=== PATIENT | female | born 1940 | race Caucasian/White ===

== ENCOUNTER 2016-09-02 11:50 | Inpatient (IN) | payer OTHER, MEDICARE ==
--- NOTE | 2016-09-02 12:34 | PDOC ---
History of Present Illness - General Chief Complaint: Vomiting/Diarrhea Stated Complaint: NAUSEA VOMITING Time Seen by Provider: 09/02/16 12:24 History Source: Patient Exam Limitations: No Limitations - History of Present Illness Initial Comments: CHIEF COMPLAINT: 76 y/o afebrile female with PMH GERD, COPD, HTN c/o vomiting and diarrhea since yesterday. HISTORY OF PRESENT ILLNESS: The patient states she is still nauseous today and able to swallow liquids but feels very weak. She does admit to some lower abdominal cramping. She also admits to 1 episode of tarry diarrhea yesterday. She denies f/c, EDDY, cough, CP, SOB, back pain, hematuria, dysuria. The patient' s daughter informs me that she abuses xanax. Vital signs on arrival are notable for pulse of 91 and O2 sat 92% on RA. REVIEW OF SYSTEMS: GENERAL/CONSTITUTIONAL: No fever/chills. No weakness. No weight change. HEAD, EYES, EARS, NOSE AND THROAT: No change in vision. No ear pain or discharge. No sore throat. CARDIOVASCULAR: No chest pain or shortness of breath. RESPIRATORY: No cough, wheezing, or hemoptysis. GASTROINTESTINAL: +nausea, vomiting, diarrhea and lower abdominal cramping. GENITOURINARY: No dysuria, frequency, or change in urination. MUSCULOSKELETAL: No joint or muscle swelling or pain. No neck or back pain. SKIN: No rash or easy bruising. NEUROLOGIC: No headache, vertigo, loss of consciousness, or loss of sensation. PHYSICAL EXAM: GENERAL: The patient is awake, alert, and fully oriented, in no acute distress. She appears sleepy. HEAD: Normal with no signs of trauma. ENT: Pupils equal, round and reactive to light, extraocular movements intact, sclera anicteric, conjunctiva clear. Neck supple. MOderately dry mucous membranes. LUNGS: Clear to auscultation bilaterally. Normal excursion. No respiratory distress or use of accessory muscles. CV: RRR, S1/S2, no MRG. Cap refill < 2 sec. ABDOMEN: Soft, non-distended, TTP of LLQ. No rebound, guarding or rigidity. Decreased BS x 4. EXTREMITIES: Normal range of motion, no edema. RECTAL: Internal and external hemorrhoids. Stool appears normal in color. NEUROLOGICAL: Normal speech, normal gait. CN II-XII grossly intact. PSYCH: Normal mood, normal affect. SKIN: Decreased skin turgor. Warm, dry, no rashes or lesions noted. Past History - Past Medical History Allergies/Adverse Reactions: Allergies Allergy/AdvReac Type Severity Reaction Status Date / Time No Known Allergies Allergy Verified 09/02/16 12:38 Home Medications: Ambulatory Orders Pantoprazole Sodium [Protonix -] 40 mg PO DAILY 08/02/12 Calcium 500 mg PO DAILY 04/06/15 Cholecalciferol (Vitamin D3) [Vitamin D3] 1,000 unit PO DAILY 04/06/15 [place]-3 Fatty Acids [Fish Oil] 300 mg PO DAILY 04/06/15 Alprazolam [Xanax] 2 tab PO PRN PRN #30 tablet 05/22/15 Ipratropium/Albuterol Sulfate [Combivent Respimat Inhal [place]] 4 gm IH Q6H PRN # 1 aer.w.adap 05/22/15 Montelukast Na [Singulair -] 10 mg PO HS #30 tablet 05/22/15 Duloxetine HCl [Cymbalta] 20 mg PO DAILY 11/12/15 Levothyroxine [Synthroid -] 100 mcg PO DAILY 11/12/15 Oxycodone HCl/Acetaminophen [Percocet 5-325 mg Tablet] 1 tab PO Q4H PRN Metoprolol Succinate [Toprol XL -] 50 mg PO BID #60 tab.sr.24h 11/17/15 Olmesartan/Hydrochlorothiazide [Benicar Hct 20-12.5 mg Tablet] 1 each PO DAILY # 30 tablet 11/17/15 Salmeterol/Fluticasone [Advair 100Mcg/50Mcg -] 1 puff IH BID #1 inhaler Alprazolam 1 mg PO QID 09/02/16 Cholestyramine/Aspartame [Prevalite Packet] 4 gm PO DAILY 09/02/16 Diphenoxylate HCl/Atropine [Lomotil Tablet] 1 each PO DAILY 09/02/16 Duloxetine HCl [Cymbalta] 30 mg PO DAILY 09/02/16 Ondansetron [Zofran -] 4 mg PO BID 09/02/16 Oxycodone HCl/Acetaminophen [Percocet 5-325 mg Tablet] 1 - 2 tab PO Q4H Prednisone [Deltasone -] 10 mg PO BID 09/02/16 Ranitidine [Zantac -] 150 mg PO DAILY 09/02/16 Spironolactone 25 mg PO DAILY 09/02/16 Trazodone HCl 50 mg PO DAILY 09/02/16 Zolpidem Tartrate [Ambien] 10 mg PO HS 09/02/16 Anemia: No Asthma: Yes Cancer: Yes (CERVIX/UTERUS) Cardiac Disorders: Yes (broken heart syndrome) CVA: No COPD: Yes CHF: No Dementia: No Diabetes: No 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) HTN: Yes Hypercholesterolemia: No Liver Disease: No Seizures: No Thyroid Disease: Yes (hypothyroidism) - Surgical History Abdominal Surgery: No Appendectomy: Yes Cardiac Surgery: No Cholecystectomy: No Lung Surgery: No Neurologic Surgery: No Orthopedic Surgery: Yes (FUSION C7-T1, ROTATOR CUFF REPAIR) - Immunization History Immunization Up to Date: Yes - Psycho/Social/Smoking Cessation Hx Anxiety: No Suicidal Ideation: No Smoking History: Former smoker Have you smoked in the past 12 months: No Number of Cigarettes Smoked Daily: 15 If you are a former smoker, when did you quit?: 2000 Hx Alcohol Use: No Drug/Substance Use Hx: No Substance Use Type: None Hx Substance Use Treatment: No Heart Score/ECG Review - ECG Intrepretation Comment:: Twelve-lead EKG was performed and reviewed by Dr. López. There is normal sinus rhythm with a normal rate. The axis is normal. The intervals are normal. There are no ST or T wave abnormalities. Impression: Normal twelve-lead EKG ED Treatment Course - LABORATORY CBC & Chemistry Diagram: 09/02/16 12:49 09/02/16 14:26 Medical Decision Making - Medical Decision Making A/P: 76 y/o afebrile female with vomiting and diarrhea since yesterday. Plan is as followin. EKG 2. CXR 3. Labs 4. IV fluids 5. IV zofran 6. Stool occult EKG normal CXR - unremarkable Labs show hyperkalemia and ARF. Suspect secondary to dehydration. Stool occult + Spoke with Dr. Brown and he wants patient admitted to hospitalist today. Spoke with Dr. Gamez who accepts admission to med/surg. *DC/Admit/Observation/Transfer Diagnosis at time of Disposition: Hyperkalemia Acute renal failure Qualifiers: Acute renal failure type: unspecified Qualified Code(s): N17.9 - Acute kidney failure, unspecified - Discharge Dispostion Admit: Yes - Referrals Referrals: Girish Brown MD [Primary Care Provider] -
[2016-09-02 12:38] VITALS: BMI 21.9
[2016-09-02] MEDS ORDERED: ONDANSETRON 4 MG/2 ML VIAL IVPUSH ONE (12:43)
[2016-09-02 12:51] LABS: STOOL FOR OCCULT BLOOD POSITIVE (NEGATIVE)
[2016-09-02 12:55] LABS: BASOPHIL 1.3 % (0-2.0); EOSINOPHIL 4.6 % (0-4.5); MCH 31.5 pg (25.7-33.7); MCHC 32.7 g/dl (32.0-36.0); MEAN CELL VOLUME 96.2 fl (80-96); MEAN PLT VOLUME 7.9 fl (7.5-11.1); NEUTROPHILS 70.3 % (42.8-82.8); PLATELET COUNT 244 K/MM3 (134-434); RDW 15.4 % (11.6-15.6); WHITE BLOOD COUNT 9.1 K/mm3 (4.0-10.0)
[2016-09-02] MEDS ORDERED: SODIUM CHLORIDE 1,000 ML IV STA ×2 (13:06→14:32)
[2016-09-02] MEDS ORDERED: ONDANSETRON 4 MG/2 ML VIAL ONE (13:07)
[2016-09-02 13:08] LABS: INR 0.99 (0.82-1.09); PROTHROMBIN TIME (PATIENT) 10.9 SEC (9.98-11.88)
[2016-09-02 13:31] LABS: URINE APPEARANCE SLCLOUDY; URINE BILIRUBIN NEGATIVE (NEGATIVE); URINE BLOOD NEGATIVE (NEGATIVE); URINE COLOR YELLOW; URINE GLUCOSE (UA) NEGATIVE (NEGATIVE); URINE KETONE NEGATIVE (NEGATIVE); URINE NITRITE NEGATIVE (NEGATIVE); URINE PROTEIN NEGATIVE (NEGATIVE); URINE UROBILINOGEN NEGATIVE E.U./dl (0.2-1.0)
[2016-09-02 13:32] LABS: URINE LEUK ESTERASE 3+ (NEGATIVE)
[2016-09-02 13:37] LABS: URINE BACTERIA RARE /hpf (NONE SEEN); URINE HYALINE CAST 5 /lpf; URINE MUCUS RARE; URINE WBC 143 /hpf (3-5)
[2016-09-02 15:27] LABS: ANION GAP 9 (8-16); BILIRUBIN,TOTAL 0.4 mg/dL (0.2-1.0); CALCIUM 8.4 mg/dL (8.5-10.1); CO2 23 mmol/L (21-32); CREATININE 2.6 mg/dL (0.55-1.02); GLUCOSE,RANDOM 92 mg/dL (74-106); SGOT/AST 10 U/L (15-37); TOT PROT 6.1 g/dl (6.4-8.2)
[2016-09-02 15:34] LABS: ALK PHOS 63 U/L (45-117); SGPT/ALT 12 U/L (12-78); TROPONIN I < 0.02 ng/ml (0.00-0.05)
[2016-09-02 16:06] LABS: URINE MARIJUANA THC NEGATIVE ng/ml (CUTOFF=50)
[2016-09-02] MEDS ORDERED: OXYCODONE/APAP 5/325MG COMBO TABLET PO PRN (16:45)
--- NOTE | 2016-09-02 16:45 | HP ---
PCP: Girish Brown CHIEF COMPLAINT: Vomiting HISTORY OF PRESENT ILLNESS: This is a 76-year-old woman who presented to the ER complaining of general weakness. She says she has been experiencing nausea and vomiting for the last 2 days. She had one episode of diarrhea. She denies fever , chills, cough, shortness of breath, chest pain, palpitations, abdominal pain, hematemesis, melena, rectal bleeding, dysuria, hematuria. She has not been able to eat. PAST MEDICAL HISTORY HTN GERD COPD PUD Depression and anxiety Chronic pain syndrome Stress-induced cardiomyopathy Renal cell carcinoma Cervical cancer PAST SURGICAL HISTORY Partial left nephrectomy Cervical fusion Left shoulder surgery Hysterectomy Bilateral cataracts Allergies No Known Allergies Allergy (Verified 09/02/16 12:38) HOME MEDICATIONS 3 Medication Instructions Recorded Pantoprazole Sodium [Protonix -] 40 mg PO DAILY 08/02/12 Calcium 500 mg PO DAILY 04/06/15 Cholecalciferol (Vitamin D3) 1,000 unit PO DAILY 04/06/15 [Vitamin D3] [place]-3 Fatty Acids [Fish Oil] 300 mg PO DAILY 04/06/15 Alprazolam [Xanax] 2 tab PO PRN PRN #30 tablet 05/22/15 Ipratropium/Albuterol Sulfate 4 gm IH Q6H PRN #1 aer.w.adap 05/22/15 [Combivent Respimat Inhal [place]] Montelukast Na [Singulair -] 10 mg PO HS #30 tablet 05/22/15 Duloxetine HCl [Cymbalta] 20 mg PO DAILY 11/12/15 Levothyroxine [Synthroid -] 100 mcg PO DAILY 11/12/15 Oxycodone HCl/Acetaminophen 1 tab PO Q4H PRN 11/12/15 [Percocet 5-325 mg Tablet] Metoprolol Succinate [Toprol XL -] 50 mg PO BID #60 tab.sr.24h 11/17/15 Olmesartan/Hydrochlorothiazide 1 each PO DAILY #30 tablet 11/17/15 [Benicar Hct 20-12.5 mg Tablet] Salmeterol/Fluticasone [Advair 1 puff IH BID #1 inhaler 11/17/15 100Mcg/50Mcg -] Alprazolam 1 mg PO QID 09/02/16 Cholestyramine/Aspartame 4 gm PO DAILY 09/02/16 [Prevalite Packet] Diphenoxylate HCl/Atropine 1 each PO DAILY 09/02/16 [Lomotil Tablet] Duloxetine HCl [Cymbalta] 30 mg PO DAILY 09/02/16 Ondansetron [Zofran -] 4 mg PO BID 09/02/16 Oxycodone HCl/Acetaminophen 1 - 2 tab PO Q4H 09/02/16 [Percocet 5-325 mg Tablet] Prednisone [Deltasone -] 10 mg PO BID 09/02/16 Ranitidine [Zantac -] 150 mg PO DAILY 09/02/16 Spironolactone 25 mg PO DAILY 09/02/16 Trazodone HCl 50 mg PO DAILY 09/02/16 Zolpidem Tartrate [Ambien] 10 mg PO HS 09/02/16 Social History: Smoking: Quit 15-20 years ago Alcohol: 1 drink per week Drugs: None Recent Travel: No Family History: Non-contributory REVIEW OF SYSTEMS CONSTITUTIONAL: Present: chills, generalized weakness. Absent: fever, diaphoresis, malaise, loss of appetite, weight change HEENT: Absent: rhinorrhea, nasal congestion, throat pain, throat swelling, difficulty swallowing, mouth swelling, ear pain, eye pain, visual changes CARDIOVASCULAR: Absent: chest pain, syncope, palpitations, lightheadedness, peripheral edema RESPIRATORY: Absent: cough, shortness of breath, dyspnea with exertion, orthopnea, wheezing, stridor, hemoptysis GASTROINTESTINAL: Present: nausea, vomiting, diarrhea. Absent: abdominal pain, abdominal distension, constipation, melena, hematochezia GENITOURINARY: Absent: dysuria, frequency, urgency, hesitancy, hematuria, flank pain MUSCULOSKELETAL: Present: back pain. Absent: myalgia, arthralgia, joint swelling, neck pain SKIN: Absent: rash, itching, pallor HEMATOLOGIC/IMMUNOLOGIC: Absent: easy bleeding, easy bruising, lymphadenopathy, frequent infections ENDOCRINE: Absent: unexplained weight gain, unexplained weight loss, heat intolerance, cold intolerance NEUROLOGIC: Absent: headache, focal weakness, paresthesias, dizziness, unsteady gait, seizure, mental status changes, bladder or bowel incontinence PSYCHIATRIC: Absent: anxiety, depression, suicidal or homicidal ideation, hallucinations. PHYSICAL EXAMINATION Vital Signs - 24 hr 09/02/16 09/02/16 11:57 13:43 Temperature 98.1 F Pulse Rate 91 H Pulse Rate [ 70 Right Radial] Respiratory 14 16 Rate Blood Pressure 100/60 Blood Pressure 116/50 [Left Arm] O2 Sat by Pulse 92 L 100 Oximetry (%) GENERAL: Awake, alert, and fully oriented, in no acute distress. HEAD: Normal with no signs of trauma. EYES: Pupils equal, round and reactive to light, extraocular movements intact, sclerae anicteric, conjunctivae clear. EARS, NOSE, THROAT: Ears normal, nares patent, oropharynx clear without exudates. Dry mucous membranes. NECK: Normal range of motion, supple without lymphadenopathy, JVD, or masses. LUNGS: Breath sounds equal, clear to auscultation bilaterally. No wheezes, and no crackles. No accessory muscle use. HEART: Regular rate and rhythm, normal S1 and S2 without murmur, rub or gallop. ABDOMEN: Soft, nontender, not distended, normoactive bowel sounds, no guarding, no rebound, no masses. No hepatomegaly or splenomegaly. MUSCULOSKELETAL: Normal range of motion at all joints. No bony deformities or tenderness. No CVA tenderness. UPPER EXTREMITIES: 2+ pulses, warm, well-perfused. No cyanosis. No clubbing. No peripheral edema. LOWER EXTREMITIES: 2+ pulses, warm, well-perfused. No calf tenderness. No peripheral edema. NEUROLOGICAL: Cranial nerves II-XII intact. Normal speech. Gait not observed. PSYCHIATRIC: Cooperative. Good eye contact. Appropriate mood and affect. SKIN: Warm, dry, poor turgor, no rashes or lesions noted, normal capillary refill. Laboratory Results - last 24 hr 09/02/16 09/02/16 09/02/16 12:46 12:48 12:49 WBC 9.1 D RBC 4.12 Hgb 13.0 Hct 39.6 MCV 96.2 H MCHC 32.7 RDW 15.4 Plt Count 244 D MPV 7.9 D Neutrophils % 70.3 Lymphocytes % 15.8 Monocytes % 8.0 Eosinophils % 4.6 H D Basophils % 1.3 D INR Sodium Cancelled Potassium Cancelled Chloride Cancelled Carbon Dioxide Cancelled Anion Gap Cancelled BUN Cancelled Creatinine Cancelled Creat Clearance w eGFR Cancelled Random Glucose Cancelled Calcium Cancelled Total Bilirubin Cancelled AST Cancelled ALT Cancelled Alkaline Phosphatase Cancelled Creatine Kinase Cancelled Troponin I Cancelled Total Protein Cancelled Albumin Cancelled Urine Color Yellow Urine Appearance Slcloudy Urine pH 5.0 Ur Specific [place] 1.015 Urine Protein Negative Urine Glucose (UA) Negative Urine Ketones Negative Urine Blood Negative Urine Nitrite Negative Urine Bilirubin Negative Urine Urobilinogen Negative Ur Leukocyte Esterase 3+ H D Urine RBC None Urine WBC 143 Ur Epithelial Cells Rare Urine Bacteria Rare Hyaline Casts 5 Urine Mucus Rare Stool Occult Blood Positive Opiates Screen Methadone Screen Barbiturate Screen Phencyclidine Screen Ur Amphetamines Screen MDMA (Ecstasy) Screen Benzodiazepines Screen Cocaine Screen U Marijuana (THC) Screen Blood Type Antibody Screen 09/02/16 09/02/16 09/02/16 12:49 13:15 14:26 WBC RBC Hgb Hct MCV MCHC RDW Plt Count MPV Neutrophils % Lymphocytes % Monocytes % Eosinophils % Basophils % INR 0.99 Sodium 142 Potassium 5.8 H Chloride 110 H Carbon Dioxide 23 Anion Gap 9 BUN 51 H D Creatinine 2.6 H D Creat Clearance w eGFR 17.85 Random Glucose 92 D Calcium 8.4 L Total Bilirubin 0.4 D AST 10 L D ALT 12 D Alkaline Phosphatase 63 Creatine Kinase Troponin I < 0.02 Total Protein 6.1 L Albumin 3.0 L Urine Color Urine Appearance Urine pH Ur Specific [place] Urine Protein Urine Glucose (UA) Urine Ketones Urine Blood Urine Nitrite Urine Bilirubin Urine Urobilinogen Ur Leukocyte Esterase Urine RBC Urine WBC Ur Epithelial Cells Urine Bacteria Hyaline Casts Urine Mucus Stool Occult Blood Opiates Screen Negative Methadone Screen Negative Barbiturate Screen Negative Phencyclidine Screen Negative Ur Amphetamines Screen Negative MDMA (Ecstasy) Screen Positive Benzodiazepines Screen Positive Cocaine Screen Negative U Marijuana (THC) Screen Negative Blood Type Antibody Screen 09/02/16 09/02/16 14:26 14:37 WBC RBC Hgb Hct MCV MCHC RDW Plt Count MPV Neutrophils % Lymphocytes % Monocytes % Eosinophils % Basophils % INR Sodium Potassium Chloride Carbon Dioxide Anion Gap BUN Creatinine Creat Clearance w eGFR Random Glucose Calcium Total Bilirubin AST ALT Alkaline Phosphatase Creatine Kinase Troponin I Total Protein Albumin Urine Color Urine Appearance Urine pH Ur Specific [place] Urine Protein Urine Glucose (UA) Urine Ketones Urine Blood Urine Nitrite Urine Bilirubin Urine Urobilinogen Ur Leukocyte Esterase Urine RBC Urine WBC Ur Epithelial Cells Urine Bacteria Hyaline Casts Urine Mucus Stool Occult Blood Opiates Screen Methadone Screen Barbiturate Screen Phencyclidine Screen Ur Amphetamines Screen MDMA (Ecstasy) Screen Benzodiazepines Screen Cocaine Screen U Marijuana (THC) Screen Blood Type O POSITIVE O POSITIVE Antibody Screen Negative Chest x-ray: Increased interstitial markings. Degenerative spine with compression fractures. Metallic fixation device in cervical/thoracic spine. ASSESSMENT/PLAN: This is a 76-year-old woman with a history of HTN, COPD, CHF, stress-induced CM , PUD, GERD, hypothyroidism, chronic pain, depression, anxiety, cervical cancer , renal cell carcinoma who comes to the ER with weakness after 2 days of nausea and vomiting. She was found to have potassium 5.8, BUN 51, creatinine 2.6. Urinalysis shows 3+ leukocyte esterase, 143 WBC. She is being admitted now for treatment of an emergent condition. 1. Acute kidney injury secondary to dehydration - IV fluid - Hold Benicar, HCTZ, Aldactone - Monitor BUN, creatinine 2. Hyperkalemia secondary to dehydration, medication - IV fluid - Hold Benicar, Aldactone - Monitor electrolytes 3. Nausea, vomiting, diarrhea - IV fluid - Zofran as needed - Clear liquid diet and advance as tolerated 4. UTI - Start Rocephin - Follow-up urine culture 5. COPD - Stable - Continue Advair, Singulair, Prednisone - DuoNeb as needed 6. Hypertension - Continue Toprol XL - Hold Benicar, HCTZ, Aldactone secondary to JORDEN and hyperkalemia 7. Depression and anxiety - Continue Cymbalta, Trazodone, Xanax as needed 8. Peptic ulcer disease/GERD - Continue Protonix, Zantac 9. Hypothyroidism - Continue Synthroid - Check TSH 10. Chronic pain syndrome - Continue Percocet as needed 11. History of systolic heart failure secondary to stress-induced cardiomyopathy - Echo 11/2015 showed normal LVEF Problem List - Problem (1) Dehydration Code(s): E86.0 - DEHYDRATION (2) Nausea and vomiting Code(s): R11.2 - NAUSEA WITH VOMITING, UNSPECIFIED (3) UTI (urinary tract infection) Code(s): N39.0 - URINARY TRACT INFECTION, SITE NOT SPECIFIED (4) Anxiety Code(s): F41.9 - ANXIETY DISORDER, UNSPECIFIED (5) GERD (gastroesophageal reflux disease) Code(s): K21.9 - GASTRO-ESOPHAGEAL REFLUX DISEASE WITHOUT ESOPHAGITIS (6) Acute renal failure Code(s): N17.9 - ACUTE KIDNEY FAILURE, UNSPECIFIED Qualifiers: Acute renal failure type: unspecified Qualified Code(s): N17.9 - Acute kidney failure, unspecified (7) Hyperkalemia Code(s): E87.5 - HYPERKALEMIA (8) COPD (chronic obstructive pulmonary disease) Code(s): J44.9 - CHRONIC OBSTRUCTIVE PULMONARY DISEASE, UNSPECIFIED Qualifiers : COPD type: COPD with acute exacerbation Qualified Code(s): J44.1 - Chronic obstructive pulmonary disease with (acute) exacerbation (9) Chronic pain disorder Code(s): G89.4 - CHRONIC PAIN SYNDROME (10) H/O renal cell cancer Code(s): Z85.528 - PERSONAL HISTORY OF OTHER MALIGNANT NEOPLASM OF KIDNEY (11) HLD (hyperlipidemia) Code(s): E78.5 - HYPERLIPIDEMIA, UNSPECIFIED (12) HTN (hypertension) Code(s): I10 - ESSENTIAL (PRIMARY) HYPERTENSION (13) Hypothyroid Code(s): E03.9 - HYPOTHYROIDISM, UNSPECIFIED Qualifiers: Hypothyroidism type: unspecified Qualified Code(s): E03.9 - Hypothyroidism, unspecified (14) Peptic disease Code(s): K31.9 - DISEASE OF STOMACH AND DUODENUM, UNSPECIFIED Visit type - Emergency Visit Emergency Visit: Yes Care time: The patient presented to the Emergency Department on the above date and was hospitalized for further evaluation of their emergent condition. - New Patient This patient is new to me today: Yes Date on this admission: 09/02/16 - Critical Care Critical Care patient: No
[2016-09-02] MEDS ORDERED: ONDANSETRON 4 MG/2 ML VIAL IVPB PRN (16:48)
[2016-09-02] MEDS ORDERED: ACETAMINOPHEN 325 MG TABLET (FP) PO PRN (16:48)
[2016-09-02] MEDS ORDERED: ALBUTEROL SO4 0.083% IH SOL 2.5 MG/3 ML VIAL.NEB. NEB PRN (16:48)
[2016-09-02] MEDS: SODIUM CHLORIDE 1,000 ML IV SCH (17:15)
[2016-09-02] MEDS ORDERED: ALBUTEROL SO4 2.5/IPRATROPIUM 0.5 INH SOL 3 ML VIAL.NEB. NEB PRN (18:21)
[2016-09-02 20:58] LABS: CALCIUM 8.3 mg/dL (8.5-10.1); CREATININE 2.1 mg/dL (0.55-1.02)
[2016-09-02] MEDS: predniSONE 10 MG TABLET (UD) PO SCH (21:38)
[2016-09-02] MEDS: MONTELUKAST NA 10 MG TABLET PO SCH (21:38)
[2016-09-02] MEDS: HEPARIN NA (PORCINE) 5,000 UNITS/ML 1ML VIAL SQ SCH (21:38)
[2016-09-02] MEDS: METOPROLOL SUCCINATE 50 MG TAB.SR.24H (FP) PO SCH (21:38)
[2016-09-02] MEDS: traZODone HCL 50 MG TABLET (FP) PO SCH (21:38)
[2016-09-02] MEDS: CEFTRIAXONE 50 ML IVPB SCH (21:38)
[2016-09-02] MEDS: FLUTICASONE/SALMETEROL 100 MCG/50 MCG DISKUS IH SCH (21:45)
[2016-09-02] MEDS: ALPRAZolam 2 MG TABLET PO PRN (21:45)
[2016-09-03] MEDS: HEPARIN NA (PORCINE) 5,000 UNITS/ML 1ML VIAL SQ SCH ×3 (06:22→22:15)
[2016-09-03] MEDS: LEVOTHYROXINE NA 100 MCG TABLET (FP) PO SCH (06:23)
[2016-09-03] MEDS: SODIUM CHLORIDE 1,000 ML IV SCH ×3 (06:48→23:00)
[2016-09-03 07:12] LABS: MCH 31.3 pg (25.7-33.7); MCHC 32.8 g/dl (32.0-36.0); MEAN CELL VOLUME 95.3 fl (80-96); MEAN PLT VOLUME 7.7 fl (7.5-11.1); PLATELET COUNT 220 K/MM3 (134-434); RDW 14.8 % (11.6-15.6); WHITE BLOOD COUNT 7.8 K/mm3 (4.0-10.0)
[2016-09-03 07:36] LABS: CALCIUM 8.1 mg/dL (8.5-10.1); CREATININE 1.4 mg/dL (0.55-1.02)
[2016-09-03 07:44] LABS: THYROID STIMULATING HORMONE 4.36 uIU/ml (0.358-3.74)
--- NOTE | 2016-09-03 09:57 | PN ---
Progress Note (short form) - Note Progress Note: Patient seen and examined. Chart reviewed. 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 Initially, her lethargy was felt to be related as well to overuse of tranquilizers and/or pain medication. In ER findings of ARF with elevated serum creatinine ad hyperkalemia (5.8) noted. Urine toxicology screen noted benzodiazepines w/o opioids. Treated with NSS and empiric antibiotics. Follow- up labs reveal improvement in renal parameters. Patient is currently alert and responsive but remains responsive. No new chest discomfort or dyspnea Selected Entries 09/03/16 06:00 Temperature 98.5 F Pulse Rate 68 Pulse Rhythm [ Regular Apical] Respiratory 20 Rate Blood Pressure 98/52 O2 Sat by Pulse 97 Oximetry (%) Oxygen Delivery Room Air Method Laboratory Tests 09/02/16 09/03/16 09/03/16 12:49 06:00 06:00 WBC 7.8 Hgb 11.2 D Hct 34.1 Plt Count 220 INR 0.99 Sodium 141 Potassium 5.6 H Chloride 112 H Carbon Dioxide 22 BUN 32 H D Creatinine 1.4 H D Random Glucose 123 H Calcium 8.1 L TSH 4.36 H D Chest Clear Cor RRR Abd Soft non-tender No mass Normal BS Ext No edema No Phlebitis Neuro No new focal deficits Assessment and Plan ARF Likely related to fluid losses Improved on NSS solution 51/2.6>>41/2.1>> 32/1.4 Hyperkalemia Improved overall Continue to monitor No evidence of EKG changes on initial study when K+ was 5.8 COPD Stable CXR noted Likely chronic changes CT 05/2016 revealed RLL changes HTN Stable Bladder dysfunction Self-catheterizes Possible UTI on Rx UTI As above H/O EColi septicemia with septic shock OA Stable Anxiety/Depression Ongoing issue in light of medication overuse H/O Cervical Ca post XRT and TAHBSO Hypothyroid TSH noted Continue same dose Peptic ulcer disease Stable 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
[2016-09-03] MEDS ORDERED: PATIENT'S OWN MEDICATION (NON-FORMULARY) (Omega-3 Fatty Acids [Fish Oil] 300 MG) PO SCH (10:00)
[2016-09-03] MEDS: predniSONE 10 MG TABLET (UD) PO SCH ×2 (10:33→22:09)
[2016-09-03] MEDS: RANITIDINE HCL 150 MG TABLET (FP) PO SCH (10:33)
[2016-09-03] MEDS: DULoxetine HCL 30 MG CAPSULE.DR (FP) PO SCH (10:33)
[2016-09-03] MEDS: METOPROLOL SUCCINATE 50 MG TAB.SR.24H (FP) PO SCH ×2 (10:33→22:09)
[2016-09-03] MEDS: PANTOPRAZOLE 40 MG TABLET (FP) PO SCH (10:34)
[2016-09-03] MEDS: CHOLECALCIFEROL (VITAMIN D3) 1,000 UNIT TABLET (FP) PO SCH (10:34)
[2016-09-03] MEDS: CALCIUM (OYSTER SHELL) 500 MG TABLET (FP) PO SCH (10:34)
[2016-09-03] MEDS: CEFTRIAXONE 50 ML IVPB SCH (10:34)
[2016-09-03] MEDS: FLUTICASONE/SALMETEROL 100 MCG/50 MCG DISKUS IH SCH ×2 (10:35→22:11)
[2016-09-03] MEDS: ALPRAZolam 2 MG TABLET PO PRN (10:40)
[2016-09-03] MEDS: oxyCODONE HCL 5 MG TABLET PO PRN ×2 (11:00→22:07)
[2016-09-03] MEDS: ACETAMINOPHEN 325 MG TABLET (FP) PO PRN ×2 (13:11→22:08)
[2016-09-03] MEDS: CHOLESTYRAMINE/ASPARTAME 4 GM PACKET PO SCH (14:57)
--- NOTE | 2016-09-03 18:31 | EKG ---
Test Reason : Blood Pressure : / mmHG Vent. Rate : 082 BPM Atrial Rate : 082 BPM P-R Int : 164 ms QRS Dur : 086 ms QT Int : 388 ms P-R-T Axes : -01 021 037 degrees QTc Int : 453 ms NORMAL SINUS RHYTHM NORMAL ECG WHEN COMPARED WITH ECG OF 12-NOV-2015 15:06, NO SIGNIFICANT CHANGE WAS FOUND Confirmed by SABRINA NICHOLAS MD ([id number]) on 09/03/2016 6:31:32 PM Referred By: Confirmed By:SABRINA NICHOLAS MD
[2016-09-03] MEDS: MONTELUKAST NA 10 MG TABLET PO SCH (22:08)
[2016-09-03] MEDS: traZODone HCL 50 MG TABLET (FP) PO SCH (22:09)
[2016-09-04] MEDS: ALPRAZolam 2 MG TABLET PO PRN ×2 (01:36→21:32)
[2016-09-04] MEDS: LEVOTHYROXINE NA 100 MCG TABLET (FP) PO SCH (06:27)
[2016-09-04 07:08] LABS: ECSTACY (MDMA) Negative (Cutoff=500)
[2016-09-04 07:21] LABS: BASOPHIL 0.8 % (0-2.0); EOSINOPHIL 0.5 % (0-4.5); MCH 31.3 pg (25.7-33.7); MCHC 33.2 g/dl (32.0-36.0); MEAN CELL VOLUME 94.3 fl (80-96); MEAN PLT VOLUME 7.9 fl (7.5-11.1); PLATELET COUNT 228 K/MM3 (134-434); RDW 14.7 % (11.6-15.6); WHITE BLOOD COUNT 6.9 K/mm3 (4.0-10.0)
[2016-09-04 07:55] LABS: ALBUMIN 2.7 g/dl (3.4-5.0); ANION GAP 8 (8-16); BILIRUBIN,TOTAL 0.2 mg/dL (0.2-1.0); CALCIUM 8.2 mg/dL (8.5-10.1); CO2 22 mmol/L (21-32); CREATININE 0.9 mg/dL (0.55-1.02); GLUCOSE,RANDOM 105 mg/dL (74-106); SGOT/AST 9 U/L (15-37); SGPT/ALT 11 U/L (12-78); TOT PROT 5.4 g/dl (6.4-8.2)
[2016-09-04 07:56] LABS: ALK PHOS 52 U/L (45-117)
[2016-09-04] MEDS ORDERED: PT OWN MED DRAWER 7, Y5N ONE (09:29)
[2016-09-04] MEDS: FLUTICASONE/SALMETEROL 100 MCG/50 MCG DISKUS IH SCH ×2 (09:37→21:33)
[2016-09-04] MEDS: SODIUM CHLORIDE 1,000 ML IV SCH ×2 (09:39→11:00)
[2016-09-04] MEDS: CEFTRIAXONE 50 ML IVPB SCH (09:39)
[2016-09-04] MEDS: CALCIUM (OYSTER SHELL) 500 MG TABLET (FP) PO SCH (09:40)
[2016-09-04] MEDS: RANITIDINE HCL 150 MG TABLET (FP) PO SCH (09:40)
[2016-09-04] MEDS: CHOLECALCIFEROL (VITAMIN D3) 1,000 UNIT TABLET (FP) PO SCH (09:40)
[2016-09-04] MEDS: METOPROLOL SUCCINATE 50 MG TAB.SR.24H (FP) PO SCH ×2 (09:40→21:32)
[2016-09-04] MEDS: DULoxetine HCL 30 MG CAPSULE.DR (FP) PO SCH (09:40)
[2016-09-04] MEDS: CHOLESTYRAMINE/ASPARTAME 4 GM PACKET PO SCH (09:40)
[2016-09-04] MEDS: predniSONE 10 MG TABLET (UD) PO SCH (09:40)
[2016-09-04] MEDS: PANTOPRAZOLE 40 MG TABLET (FP) PO SCH (09:40)
[2016-09-04] MEDS: HEPARIN NA (PORCINE) 5,000 UNITS/ML 1ML VIAL SQ SCH ×2 (09:40→21:33)
--- NOTE | 2016-09-04 10:24 | PN ---
Progress Note (short form) - Note Progress Note: Patient seen and examined. Chart reviewed. 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 Initially, her lethargy was felt to be related as well to overuse of tranquilizers and/or pain medication. In ER findings of ARF with elevated serum creatinine and hyperkalemia (5.8) noted. Urine toxicology screen noted benzodiazepines w/o opioids. Treated with NSS and empiric antibiotics. Follow- up labs reveal improvement in renal parameters and K+. Patient is currently alert and responsive but remains responsive. No new chest discomfort or dyspnea ESBL E Coli noted No data on cephalosporin sensitivity Labs reviewed. Selected Entries 09/03/16 09/04/16 21:00 06:27 Temperature 97.2 F L Pulse Rate 65 Respiratory 18 Rate Blood Pressure 117/62 O2 Sat by Pulse 94 L Oximetry (%) Oxygen Delivery Room Air Method Laboratory Tests 09/03/16 09/04/16 09/04/16 06:00 06:00 06:00 WBC 6.9 Hgb 10.7 Hct 32.2 L Plt Count 228 Sodium 142 Potassium 5.3 H Chloride 112 H Carbon Dioxide 22 BUN 21 H D Creatinine 0.9 D Random Glucose 105 Calcium 8.2 L Total Bilirubin 0.2 D AST 9 L ALT 11 L Alkaline Phosphatase 52 Total Protein 5.4 L Albumin 2.7 L TSH 4.36 H D Chest Diffuse scattered rhonchi decrease post cough Cor RRR Abd Soft non-tender No mass Normal BS Ext No edema No Phlebitis Neuro No new focal deficits Assessment and Plan ARF Likely related to fluid losses Improved on NSS solution 51/2.6>>41/2.1>> 32/1.4>>21/0.9 Hyperkalemia Improved overall Continue to monitor No evidence of EKG changes on initial study when K+ was 5.8 Currently 5.3 COPD Stable CXR noted Likely chronic changes CT 05/2016 revealed RLL changes Prednisone dose decreased HTN Stable Bladder dysfunction Self-catheterizes ESBL E Coli UTI noted Currently on ceftriaxone UTI As above (H/O EColi septicemia with septic shock) OA Stable Anxiety/Depression Ongoing issue in light of medication overuse H/O Cervical Ca post XRT and TAHBSO Hypothyroid TSH noted Continue same dose Peptic ulcer disease Stable 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
[2016-09-04] MEDS ORDERED: ERTAPENEM SODIUM 1 GM in SODIUM CHLORIDE 50 ML IVPB ONE (15:00)
[2016-09-04 16:12] LABS: URINE APPEARANCE CLEAR; URINE BILIRUBIN NEGATIVE (NEGATIVE); URINE BLOOD NEGATIVE (NEGATIVE); URINE COLOR STRAW; URINE GLUCOSE (UA) NEGATIVE (NEGATIVE); URINE KETONE NEGATIVE (NEGATIVE); URINE LEUK ESTERASE NEGATIVE (NEGATIVE); URINE NITRITE NEGATIVE (NEGATIVE); URINE PROTEIN NEGATIVE (NEGATIVE); URINE UROBILINOGEN NEGATIVE E.U./dl (0.2-1.0)
[2016-09-04] MEDS: traMADol HCL 50 MG TABLET PO PRN (19:02)
[2016-09-04] MEDS: traZODone HCL 50 MG TABLET (FP) PO SCH (21:32)
[2016-09-04] MEDS: MONTELUKAST NA 10 MG TABLET PO SCH (21:32)
[2016-09-05] MEDS: SODIUM CHLORIDE 1,000 ML IV SCH (00:30)
[2016-09-05] MEDS: LEVOTHYROXINE NA 100 MCG TABLET (FP) PO SCH (06:08)
[2016-09-05 07:51] LABS: MCH 31.7 pg (25.7-33.7); MCHC 33.7 g/dl (32.0-36.0); MEAN PLT VOLUME 7.8 fl (7.5-11.1); PLATELET COUNT 236 K/MM3 (134-434); RDW 14.7 % (11.6-15.6); WHITE BLOOD COUNT 6.6 K/mm3 (4.0-10.0)
[2016-09-05 08:11] LABS: ALBUMIN 2.7 g/dl (3.4-5.0); ANION GAP 8 (8-16); BILIRUBIN,TOTAL 0.2 mg/dL (0.2-1.0); CO2 23 mmol/L (21-32); CREATININE 0.9 mg/dL (0.55-1.02); GLUCOSE,RANDOM 78 mg/dL (74-106); SGOT/AST 10 U/L (15-37); SGPT/ALT 11 U/L (12-78); TOT PROT 5.3 g/dl (6.4-8.2)
[2016-09-05 08:12] LABS: ALK PHOS 49 U/L (45-117)
--- NOTE | 2016-09-05 09:39 | PN ---
Progress Note (short form) - Note Progress Note: ID chart dictated d/w Dr Brown imp/reccd UTI JORDEN history of neurogenic bladder/history radiation cystitis- self cath 3X a day admitted with vomiting /diarrhea and dehydration and hyperkalemia UA with pyuria and urine culture with GNR plan ertapenem for 48 hours, followup final cultures hopefully po macrobid based on final culture results
--- NOTE | 2016-09-05 09:45 | PN ---
Progress Note (short form) - Note Progress Note: Patient seen and examined. Chart reviewed. 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 Initially, her lethargy was felt to be related as well to overuse of tranquilizers and/or pain medication. In ER findings of ARF with elevated serum creatinine and hyperkalemia (5.8) noted. Urine toxicology screen noted benzodiazepines w/o opioids. Treated with NSS and empiric antibiotics. Follow- up labs reveal improvement in renal parameters and K+. Patient is currently alert and responsive, sitting up in chair. No new chest discomfort or dyspnea ESBL E Coli noted Antibiotics adjusted Labs reviewed. Selected Entries 09/04/16 09/05/16 20:45 08:16 Temperature 97.7 F Pulse Rate 60 Respiratory 16 Rate Blood Pressure 147/90 O2 Sat by Pulse 94 L Oximetry (%) Oxygen Delivery Room Air Method Laboratory Tests 09/05/16 09/05/16 06:15 06:15 WBC 6.6 Hgb 10.5 L Hct 31.1 L Plt Count 236 Sodium 144 Potassium 4.8 Chloride 113 H Carbon Dioxide 23 BUN 14 D Creatinine 0.9 Random Glucose 78 D Calcium 8.0 L Total Bilirubin 0.2 AST 10 L ALT 11 L Alkaline Phosphatase 49 Total Protein 5.3 L Albumin 2.7 L Chest Clear this AM Cor RRR Abd Soft non-tender No mass Normal BS Ext No edema No Phlebitis Neuro No new focal deficits Assessment and Plan ARF Likely related to fluid losses Improved on NSS solution 51/2.6>>41/2.1>> 32/1.4>>21/0.9>>14/0.9 Hyperkalemia Improved overall Continue to monitor No evidence of EKG changes on initial study when K+ was 5.8 Currently 4.8 COPD Stable CXR noted Likely chronic changes CT 05/2016 revealed RLL changes Prednisone dose decreased HTN Stable Bladder dysfunction Self-catheterizes ESBL E Coli UTI noted Antibiotics as per ID UTI As above (H/O EColi septicemia with septic shock) OA Stable Anxiety/Depression Ongoing issue in light of medication overuse H/O Cervical Ca post XRT and TAHBSO Hypothyroid TSH noted Continue same dose Peptic ulcer disease Stable 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
[2016-09-05] MEDS: DULoxetine HCL 30 MG CAPSULE.DR (FP) PO SCH (10:31)
[2016-09-05] MEDS: PANTOPRAZOLE 40 MG TABLET (FP) PO SCH (10:31)
[2016-09-05] MEDS: RANITIDINE HCL 150 MG TABLET (FP) PO SCH (10:31)
[2016-09-05] MEDS: CALCIUM (OYSTER SHELL) 500 MG TABLET (FP) PO SCH (10:31)
[2016-09-05] MEDS: HEPARIN NA (PORCINE) 5,000 UNITS/ML 1ML VIAL SQ SCH ×2 (10:31→22:50)
[2016-09-05] MEDS: METOPROLOL SUCCINATE 50 MG TAB.SR.24H (FP) PO SCH ×2 (10:31→22:50)
[2016-09-05] MEDS: CHOLECALCIFEROL (VITAMIN D3) 1,000 UNIT TABLET (FP) PO SCH (10:31)
[2016-09-05] MEDS: FLUTICASONE/SALMETEROL 100 MCG/50 MCG DISKUS IH SCH ×2 (10:32→22:50)
[2016-09-05] MEDS: predniSONE 10 MG TABLET (UD) PO SCH (10:32)
[2016-09-05] MEDS: CHOLESTYRAMINE/ASPARTAME 4 GM PACKET PO SCH (10:33)
[2016-09-05] MEDS: ERTAPENEM SODIUM 1 GM in SODIUM CHLORIDE 50 ML IVPB SCH (12:56)
[2016-09-05 13:49] LABS: PLATELET ESTIMATE ADEQUATE (NORMAL)
[2016-09-05 13:50] LABS: ANISOCYTOSIS 1+
--- NOTE | 2016-09-05 14:06 | CONS ---
DATE OF CONSULTATION: DATE OF DICTATION: 09/05/2016 REQUESTED BY: Girish Brown MD This is a 76-year-old woman. She was originally admitted to the hospital on the 02 of September when she presented with nausea and weakness. She had 1 episode of diarrhea, she had 1 episode of vomiting, and she presented with these complaints. She was found to have acute renal failure with a BUN of 51 and creatinine of 2.6. Potassium was 5.8. She was treated with IV fluids. She had a UA done that revealed pyuria. She was started on ceftriaxone. Urine culture is growing 2 gram-negative rods, 1 of which is an Escherichia coli ESBL, and she received a dose of ertapenem yesterday. She reports feeling better but still reports nausea. Of note, she has a history of radiation cystitis with neurogenic bladder. She self-catheterizes herself 2-3 times a day and has been doing this for at least 5 years. She notes she has had UTIs in the past, but she is not sure when she last had one. She denies any fevers or chills currently. She is not having any dysuria. She denies any flank pain. Her diarrhea has resolved, but she still has nausea. She has no known drug allergies. Her medications as an outpatient include Protonix, calcium, vitamin D, omega-3, Xanax, Combivent, Singulair, Cymbalta, Synthroid, metoprolol, Benicar, Advair, alprazolam, Lomotil, Cymbalta, ranitidine, spironolactone, and trazodone. PAST MEDICAL HISTORY: Notable for a history of asthma. She has a history of cervical cancer. She has a history of radiation colitis. She had an incidental left renal tumor, and she has a history of radiation cystitis. She has a history of hypothyroidism. She is status post appendectomy. She has had a cervical fusion and a rotator cuff repair. She is status post MELIZA-BSO for her cervical cancer. She has a history in the past as well of peptic ulcer disease, and she had Takotsubo cardiomyopathy in 2005. She has had left shoulder surgery and cataract surgery. FAMILY HISTORY: Noncontributory. SOCIAL HISTORY: She is . She is a retired nurse. She is a former smoker. REVIEW OF SYSTEMS: She denies any weight loss. She notes she still has nausea and a poor appetite. She has no constipation or dysuria. PHYSICAL EXAMINATION: Vital signs: Her temperature is 97.7. Pulse is 60. Blood pressure 147/90. Respiratory rate 16. HEENT: She is normocephalic. Her eyes are anicteric. Neck: Supple. Lungs: Have bibasilar crackles. Heart: Regular rate and rhythm. Abdomen: Soft, nontender. She has no suprapubic or CVA tenderness. Extremities: Without edema. White count 6.6, hemoglobin 10.5, platelets are 236. BUN 14, creatinine 0.9. Urinalysis on repeat is negative; on admission, had 3+ leukocytes and 143 white cells. Her urine toxicology was positive for benzodiazepines. 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 In summary, this is a 76-year-old woman admitted with nausea, vomiting and diarrhea with persistent nausea, has a history of neurogenic bladder, radiation cystitis and self-catheterizing who I suspect has a UTI with pyuria. Given the fact she is still symptomatic with her nausea, I would plan ertapenem for 48 hours following up final cultures. Hopefully, we can switch her to oral Macrobid at that time. The above was discussed with Dr. Brown. Further recommendations to follow. JARRET REYNOLDS M.D. [id number]
[2016-09-05] MEDS: traZODone HCL 50 MG TABLET (FP) PO SCH (22:49)
[2016-09-05] MEDS: MONTELUKAST NA 10 MG TABLET PO SCH (22:50)
[2016-09-05] MEDS: ALPRAZolam 2 MG TABLET PO PRN (22:52)
[2016-09-06] MEDS: LEVOTHYROXINE NA 100 MCG TABLET (FP) PO SCH (06:01)
[2016-09-06] MEDS: traMADol HCL 50 MG TABLET PO PRN (06:04)
[2016-09-06 07:26] LABS: MCH 31.4 pg (25.7-33.7); MCHC 33.7 g/dl (32.0-36.0); MEAN CELL VOLUME 93.2 fl (80-96); MEAN PLT VOLUME 7.6 fl (7.5-11.1); PLATELET COUNT 251 K/MM3 (134-434); RDW 14.8 % (11.6-15.6); WHITE BLOOD COUNT 7.2 K/mm3 (4.0-10.0)
[2016-09-06 07:45] LABS: CALCIUM 8.4 mg/dL (8.5-10.1); CREATININE 0.9 mg/dL (0.55-1.02)
[2016-09-06 09:32] LABS: METAMYELOCYTE 1 % (0-2); PLATELET ESTIMATE ADEQUATE (NORMAL)
--- NOTE | 2016-09-06 09:56 | PN ---
Progress Note (short form) - Note Progress Note: Patient seen and examined. Chart reviewed. 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 Initially, her lethargy was felt to be related as well to overuse of tranquilizers and/or pain medication. In ER findings of ARF with elevated serum creatinine and hyperkalemia (5.8) noted. Urine toxicology screen noted benzodiazepines w/o opioids. Treated with NSS and empiric antibiotics. Follow- up labs reveal improvement in renal parameters and K+. Patient is currently alert and responsive, sitting up in bed. No new chest discomfort or dyspnea. Two separate ESBL E Coli noted Antibiotics adjusted with Ertepenem Labs reviewed. Selected Entries 09/05/16 09/06/16 21:00 06:00 Temperature 97.9 F Pulse Rate 60 Respiratory 20 Rate Blood Pressure 140/86 O2 Sat by Pulse 92 L Oximetry (%) Oxygen Delivery Room Air Method Laboratory Tests 09/06/16 09/06/16 06:00 06:00 WBC 7.2 Hgb 11.0 Hct 32.8 Plt Count 251 Sodium 144 Potassium 4.1 Chloride 108 H Carbon Dioxide 24 BUN 11 D Creatinine 0.9 Random Glucose 78 Calcium 8.4 L Chest Dry rales at right base No rhonchi or wheezing Cor RRR Abd Soft non-tender No mass Normal BS Ext No edema No Phlebitis Neuro No new focal deficits Assessment and Plan ARF Likely related to fluid losses Improved on NSS solution 51/2.6>>41/2.1>> 32/1.4>>21/0.9>>14/0.9>>11/0.9 Hyperkalemia Improved overall Continue to monitor No evidence of EKG changes on initial study when K+ was 5.8 Currently 4.1 COPD Stable CXR noted Likely chronic changes CT 05/2016 revealed RLL changes Prednisone dose decreased HTN Stable Bladder dysfunction Self-catheterizes UTI with 2 separate ESBL E Coli noted Antibiotics as per ID UTI As above (H/O EColi septicemia with septic shock 2010) OA Stable Anxiety/Depression Ongoing issue in light of medication overuse H/O Cervical Ca post XRT and TAHBSO Hypothyroid TSH noted Continue same dose Peptic ulcer disease Stable 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
[2016-09-06] MEDS: CALCIUM (OYSTER SHELL) 500 MG TABLET (FP) PO SCH (11:00)
[2016-09-06] MEDS: CHOLESTYRAMINE/ASPARTAME 4 GM PACKET PO SCH (11:00)
[2016-09-06] MEDS: FLUTICASONE/SALMETEROL 100 MCG/50 MCG DISKUS IH SCH (11:00)
[2016-09-06] MEDS: PANTOPRAZOLE 40 MG TABLET (FP) PO SCH (11:00)
[2016-09-06] MEDS: DULoxetine HCL 30 MG CAPSULE.DR (FP) PO SCH (11:00)
[2016-09-06] MEDS: METOPROLOL SUCCINATE 50 MG TAB.SR.24H (FP) PO SCH (11:00)
[2016-09-06] MEDS: RANITIDINE HCL 150 MG TABLET (FP) PO SCH (11:00)
[2016-09-06] MEDS: CHOLECALCIFEROL (VITAMIN D3) 1,000 UNIT TABLET (FP) PO SCH (11:00)
[2016-09-06] MEDS: predniSONE 10 MG TABLET (UD) PO SCH (11:00)
[2016-09-06] MEDS: ERTAPENEM SODIUM 1 GM in SODIUM CHLORIDE 50 ML IVPB SCH (11:00)
[2016-09-06] MEDS: HEPARIN NA (PORCINE) 5,000 UNITS/ML 1ML VIAL SQ SCH (11:03)
[2016-09-06 11:10] VITALS: BP 155/78; PULSE 59; TEMP 98.3
--- NOTE | 2016-09-06 12:15 | DS ---
Physical Examination Vital Signs: Vital Signs Temperature 98.3 F 09/06/16 11:09 Pulse Rate 59 L 09/06/16 11:09 Respiratory Rate 18 09/06/16 11:09 Blood Pressure 155/78 09/06/16 11:09 O2 Sat by Pulse Oximetry (%) 92 L 09/05/16 21:00 Constitutional: Yes: Well Nourished, No Distress Eyes: No: Sclera Icterus Cardiovascular: Yes: Regular Rate and Rhythm Respiratory: Yes: Other (dry rales right base) Gastrointestinal: Yes: Normal Bowel Sounds, Soft. 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) GERD (gastroesophageal reflux disease) (Chronic) H/O renal cell cancer (Chronic) HLD (hyperlipidemia) (Chronic) HTN (hypertension) (Chronic) Hypothyroid (Chronic) Peptic disease (Chronic) Hospital Course: See daily notes Treated for ARF with hyperkalemia with NSS IV antibiotics for 2 ESBL E Coli Will see in office follow-up Condition: Good - Instructions Diet, Activity, Other Instructions: As tolerated Referrals: Girish Brown MD [Primary Care Provider] - Disposition: HOME - Home Medications Comprehensive Discharge Medication List: Ambulatory Orders Pantoprazole Sodium [Protonix -] 40 mg PO DAILY 08/02/12 Montelukast Na [Singulair -] 10 mg PO HS #30 tablet 05/22/15 Metoprolol Succinate [Toprol XL -] 50 mg PO BID #60 tab.sr.24h 11/17/15 Salmeterol/Fluticasone [Advair 100Mcg/50Mcg -] 1 puff IH BID #1 inhaler Alprazolam 1 mg PO QID 09/02/16 Cholestyramine/Aspartame [Prevalite Packet] 4 gm PO DAILY 09/02/16 Ranitidine [Zantac -] 150 mg PO DAILY 09/02/16 Acetaminophen [Tylenol .Regular Strength -] 325 mg PO Q4H PRN #0 tablet Albuterol 2.5/Ipratropium 0.5 [Duoneb -] 1 amp NEB Q6H PRN #0 amp 09/06/16 Calcium (Oyster Shell) [Os-Luis 500MG -] 500 mg PO DAILY tablet 09/06/16 Cholecalciferol (Vitamin D3) [Vitamin D3 -] 1,000 unit PO DAILY tab 09/06/16 Levothyroxine [Synthroid -] 100 mcg PO DAILY@0700 tablet 09/06/16
== END 2016-09-06 14:16 | disposition home or self-care (01) | DRG 683 ==
LOC: JER 11:50 → JERBED 16:31 → J7W 18:35
PROVIDERS: ADMIT Internal Medicine; ATTEND Internal Medicine
DX: N17.9 Acute kidney failure, unspecified (principal); N39.0 Urinary tract infection, site not specified; E86.0 Dehydration; E87.5 Hyperkalemia; J44.9 Chronic obstructive pulmonary disease, unspecified; I10 Essential (primary) hypertension; R11.2 Nausea with vomiting, unspecified; R19.7 Diarrhea, unspecified; F32.9 Major depressive disorder, single episode, unspecified; F41.9 Anxiety disorder, unspecified; K21.9 Gastro-esophageal reflux disease without esophagitis; E03.9 Hypothyroidism, unspecified; G89.4 Chronic pain syndrome; E78.5 Hyperlipidemia, unspecified; K31.9 Disease of stomach and duodenum, unspecified; Z85.53 Personal history of malignant neoplasm of renal pelvis; B96.20 Unspecified Escherichia coli [E. coli] as the cause of diseases classified elsewhere; Z16.12 Extended spectrum beta lactamase (ESBL) resistance; M54.5 Low back pain
CPT/HCPCS: 36415; 71020-TC; 80048; 80053; 80307; 81003; 81015; 82272; 84443; 84484; 85025; 85027; 85610; 86850; 86900; 86901; 87086; 87186; 93005; 93010; 94640; 97116-GP; 97161-GP; 99285-25; J1644